=== PATIENT | male | born 1940 | race Caucasian/White ===

== ENCOUNTER 2022-08-19 20:29 | Inpatient (IN) | payer MEDICARE, OTHER ==
[~2022-08-19] VITALS: Ht 177.8 cm; Wt 120.7 kg
--- NOTE | 2022-08-19 20:40 | NUR ---
Dr. Wright at bedside. MSE in progress.
[2022-08-19 21:13] LABS: HEMATOCRIT 49.5 % (36.7-47.1); MEAN CORPUSCULAR HEMOGLOBIN 30.4 uug (23.8-33.4); MEAN CORPUSCULAR VOLUME 93.7 fL (73.0-96.2); PLATELET COUNT (AUTO) 66 K/uL (152-348)
[2022-08-19 21:37] LABS: ALANINE AMINOTRANSFERASE 27 U/L (16-63); ALKALINE PHOSPHATASE 105 U/L (50-136); ASPARTATE AMINOTRANSFERASE 32 U/L (15-37); BILIRUBIN,DIRECT 0.5 mg/dL (0.0-0.2); BILIRUBIN,TOTAL 1.9 mg/dL (0.2-1.0); CARBON DIOXIDE 32 mmol/L (21-32); CHLORIDE 104 mmol/L (98-107); CREATININE 1.1 mg/dL (0.6-1.3); GLUCOSE 127 mg/dL (74-106); POTASSIUM 3.9 mmol/L (3.5-5.1); TOTAL PROTEIN, SERUM 6.6 g/dL (6.4-8.2); UREA NITROGEN, BLOOD 23 mg/dL (7-18)
[2022-08-19 21:46] LABS: LYMPHOCYTES % (MANUAL) 9 % (20-40); MONOCYTES % (MANUAL) 7 % (2-10); NEUTROPHILS % (MANUAL) 84 % (42-75)
[2022-08-19] MEDS ORDERED: FUROSEMIDE 40 MG/4 ML VIAL IV ONE (22:00)
--- NOTE | 2022-08-19 22:00 | NUR ---
Friend at bedside.
[2022-08-19] MEDS ORDERED: FUROSEMIDE 40 MG/4 ML VIAL ONE (22:25)
[2022-08-19] MEDS ORDERED: MAGNESIUM SULFATE/D5W 200 ML ONE (22:26)
[2022-08-19] MEDS: MAGNESIUM SULFATE/D5W 100 ML IV SCH ×2 (22:30→23:19)
[2022-08-19] MEDS ORDERED: TIMO5DRO18 EACHEYE (22:56)
[2022-08-19] MEDS ORDERED: TERA2CAP4 PO (22:56)
[2022-08-19] MEDS ORDERED: METO-357 PO (22:56)
[2022-08-19] MEDS ORDERED: BENA40TA8 PO (22:56)
[2022-08-19] MEDS ORDERED: LOVA20TA2 PO (22:56)
[2022-08-19] MEDS ORDERED: TRIA15CR2 TP (22:56)
[2022-08-19] MEDS ORDERED: TEMA30CA PO (22:56)
[2022-08-19] MEDS ORDERED: LATA2.5D15 EACHEYE (22:56)
[2022-08-19 23:11] LABS: *BILIRUBIN,URIN NEGATIVE (NEGATIVE); *BLOOD, URINE NEGATIVE (NEGATIVE); *CLARITY,URINE CLEAR (CLEAR); *COLOR,URINE YELLOW (YELLOW); *KETONES,URINE 1+ (NEGATIVE); LEUKOCYTE ESTERASE ,URINE NEGATIVE (NEGATIVE); NITRITE, URINE NEGATIVE (NEGATIVE); UGLUCOSE NEGATIVE (NEGATIVE)
[2022-08-19 23:30] LABS: BACTERIA,URINE NONE SEEN /HPF (NONE SEEN); RBC,URINE NONE SEEN /HPF (0-3); SQUAMOUS EPITHELIAL CELL,UR FEW /HPF (NONE SEEN); WBC,URINE NONE SEEN /HPF (0-3)
--- NOTE | 2022-08-20 00:39 | NUR ---
Called respiratory per Dr. Wright's request.
--- NOTE | 2022-08-20 00:42 | NUR ---
Respiratory at bedside.
[2022-08-20] MEDS ORDERED: ENOXAPARIN SODIUM 100 MG/ML DISP.SYRIN SQ ONE ×2 (01:00→01:31)
--- NOTE | 2022-08-20 02:16 | NUR ---
Dr. Wright speaking with Dr. Quintanilla of [facility].
--- NOTE | 2022-08-20 02:20 | NUR ---
Called [facility] for panel call. Dr. Last bi consultant.
--- NOTE | 2022-08-20 02:23 | NUR ---
Dr. Wright on panel call with Dr. Last.
[2022-08-20] MEDS ORDERED: ACETAMINOPHEN 325 MG TABLET PO PRN (02:30)
[2022-08-20] MEDS ORDERED: hydrALAZINE HCL 20 MG/1 ML VIAL IV PRN (02:30)
[2022-08-20] MEDS ORDERED: ONDANSETRON 4 MG/2 ML VIAL IV PRN (02:30)
[2022-08-20] MEDS ORDERED: MORPHINE SULFATE 2 MG/1 ML DISP.SYRIN IVP PRN (02:30)
--- NOTE | 2022-08-20 03:00 | NUR ---
Report given to LUCIO Norton.
--- NOTE | 2022-08-20 03:55 | NUR ---
PT's hallucinations getting worse, Dr. Wright made aware. Patient also pulled out his IV.
[2022-08-20] MEDS ORDERED: LORAZEPAM 2 MG/1 ML VIAL IM PRN (04:00)
[2022-08-20] MEDS ORDERED: LORAZEPAM 2 MG/1 ML VIAL ONE (04:00)
[2022-08-20] MEDS ORDERED: HALOPERIDOL LACTATE 5 MG/1 ML VIAL ONE ×2 (04:00→05:01)
[2022-08-20] MEDS ORDERED: diphenhydrAMINE 50 MG/1 ML VIAL IM PRN (04:00)
[2022-08-20] MEDS ORDERED: diphenhydrAMINE 50 MG/1 ML VIAL ONE (04:00)
[2022-08-20] MEDS ORDERED: HALOPERIDOL LACTATE 5 MG/1 ML VIAL IM ONE (04:00)
[2022-08-20] MEDS ORDERED: ALBUTEROL SULFATE 2.5 MG/3 ML NEBU NEB PRN (04:15)
[2022-08-20] MEDS ORDERED: HALOPERIDOL LACTATE 5 MG/1 ML VIAL IV ONE (05:00)
--- NOTE | 2022-08-20 06:45 | NUR ---
PT sleeping. NAD noted.
[2022-08-20] MEDS ORDERED: METOPROLOL SUCCINATE XL 50 MG TAB.SR.24H PO SCH (09:00)
[2022-08-20] MEDS: FLUTICASONE/VILANTEROL 1 EACH BLST.W.DEV INH SCH (09:00)
--- NOTE | 2022-08-20 09:30 | NUR ---
report received from yessenia lopez rn. pt came from home. presented to er with shortness of breath. pt was diagnose with SOB. pt aox2-3. hallucinating seeing spider crawling on the wallpaper per RN. haloperidol and benadryl was given in er. redness on right lower leg noted. ambulatory w/ fww per pt. bnp 4182; makeda foot +4 pitting edema noted; lasix 40mg was given in er. lac 20g heplock patent and intact. pt uses cpap at night for obstructive sleep apnea. pt on cardiac diet. incontinent on both. pt will go to rm 304 under chriss [employer] DIRECT[employer] will f/u care.
[2022-08-20] MEDS ORDERED: BENAZEPRIL HCL 10 MG TABLET ONE (09:32)
[2022-08-20] MEDS ORDERED: HEPARIN SODIUM,PORCINE 5,000 UNITS/ML VIAL ONE (09:32)
[2022-08-20] MEDS ORDERED: METOPROLOL TARTRATE 50 MG TABLET ONE (09:32)
[2022-08-20] MEDS: BENAZEPRIL HCL 20 MG TABLET PO SCH (09:56)
[2022-08-20] MEDS: HEPARIN SODIUM,PORCINE 5,000 UNITS/ML VIAL SQ SCH ×2 (09:58→22:44)
--- NOTE | 2022-08-20 10:21 | NUR ---
Patient presented to the ER via EMS with complaints of shortness of breath. . Patient is AAOx4. Patient stated that his condition has been worsening over the last seven days. Physician seen, labs and imaging completed, and respiratory treatment and medications given per order. Patient admitted to Telemetry Unit. Patient to be transported by registered nurse via stretcher.
[2022-08-20] MEDS ORDERED: methylPREDNISolone SOD SUCC 125 MG/2 ML VIAL IV ONE (13:15)
[2022-08-20 14:51] VITALS: BP 132/62
[2022-08-20] MEDS: TIMOLOL MALEATE 0.5% OPHT DROP 5 ML BOTTLE EACHEYE SCH ×2 (15:11→18:44)
[2022-08-20] MEDS: CEFEPIME HCL 2 G in IV DEXTROSE 5% 100 ML IV SCH (15:11)
--- NOTE | 2022-08-20 15:17 | NUR ---
md aware pt have dysphagia. npo for now until swallow eval. pt temp 94.7 md notified.
[2022-08-20 15:24] VITALS: BP 133/92
[2022-08-20] MEDS: TERAZOSIN 1 MG CAPSULE PO SCH (18:00)
--- NOTE | 2022-08-20 18:08 | NUR ---
advance directive and medical power of associate attorney placed in chart.
[2022-08-20] MEDS: CLOTRIMAZOLE 1% CREAM 30 GM TUBE TOP SCH (18:45)
[2022-08-20 20:00] VITALS: BP 152/92
[2022-08-20] MEDS ORDERED: TEMAZEPAM 15 MG CAPSULE PO PRN (21:00)
[2022-08-20] MEDS: ATORVASTATIN 10 MG TABLET PO SCH (22:42)
[2022-08-20] MEDS: LATANOPROST OPHT DROP 2.5 ML BOTTLE EACHEYE SCH (22:43)
[2022-08-20] MEDS: FUROSEMIDE 20 MG/2 ML VIAL IV SCH (22:43)
[2022-08-20] MEDS: REMEDY ESSENTIAL ZINC PASTE 113 GM TOP SCH (22:44)
[2022-08-21] MEDS: CEFEPIME HCL 2 G in IV DEXTROSE 5% 100 ML IV SCH ×3 (02:25→17:12)
[2022-08-21 04:00] VITALS: BP 144/70
[2022-08-21 07:22] LABS: MEAN CORPUSCULAR HEMOGLOBIN 30.8 uug (23.8-33.4); PLATELET COUNT (AUTO) 77 K/uL (152-348)
[2022-08-21 07:42] LABS: BILIRUBIN,TOTAL 1.3 mg/dL (0.2-1.0); MAGNESIUM 2.1 mg/dL (1.8-2.4); POTASSIUM 3.6 mmol/L (3.5-5.1); TOTAL PROTEIN, SERUM 6.5 g/dL (6.4-8.2)
[2022-08-21] MEDS: methylPREDNISolone SOD SUCC 40 MG/ML VIAL IV SCH ×2 (08:25→20:46)
[2022-08-21] MEDS: BENAZEPRIL HCL 20 MG TABLET PO SCH (08:25)
[2022-08-21] MEDS: HEPARIN SODIUM,PORCINE 5,000 UNITS/ML VIAL SQ SCH ×2 (08:26→20:46)
[2022-08-21 08:30] VITALS: BP 160/84
[2022-08-21] MEDS: TIMOLOL MALEATE 0.5% OPHT DROP 5 ML BOTTLE EACHEYE SCH ×2 (08:36→17:12)
[2022-08-21] MEDS: FLUTICASONE/VILANTEROL 1 EACH BLST.W.DEV INH SCH (08:37)
[2022-08-21] MEDS: FUROSEMIDE 20 MG/2 ML VIAL IV SCH ×2 (09:00→20:46)
[2022-08-21 11:49] VITALS: BP 124/64
[2022-08-21] MEDS: CLOTRIMAZOLE 1% CREAM 30 GM TUBE TOP SCH ×2 (11:50→17:15)
[2022-08-21] MEDS: REMEDY ESSENTIAL ZINC PASTE 113 GM TOP SCH ×2 (11:51→20:47)
[2022-08-21 16:58] VITALS: BP 137/73
[2022-08-21] MEDS: TERAZOSIN 1 MG CAPSULE PO SCH (17:13)
--- NOTE | 2022-08-21 18:40 | NUR ---
Pt status improving fully awake oriented x 4 Short walk with Pt. oob to commode. bmx1 Tolerating diet. RLE remains red Cream applied.
--- NOTE | 2022-08-21 19:30 | NUR ---
Received patient lying in bed. AAOx4. In no acute distress. Denies any pain or SOB. On O2 at 2LPM via NC in place. O2 sat at 93%. A. fib on tele with HR of 80/min. IV site on left AC intact and patent. Noted with off and on coughing, non-productive. Needs assessed and attended to. Safety measure initiated and call light within reached.
--- NOTE | 2022-08-21 20:00 | NUR ---
Received patient lying in bed. AAOx4. In no apparent distress. No complain of any pain or SOB at this time. No coughing noted. On O2 at 2LPM via NC in place. IV site on left AC intact and patent. Needs assessed and attended to. Safety measure initiated and call light within reached.
[2022-08-21 20:26] VITALS: BP 115/60
[2022-08-21] MEDS: ATORVASTATIN 10 MG TABLET PO SCH (20:46)
[2022-08-21] MEDS: LATANOPROST OPHT DROP 2.5 ML BOTTLE EACHEYE SCH (20:46)
[2022-08-22 00:45] VITALS: BP 159/95
[2022-08-22] MEDS: CEFEPIME HCL 2 G in IV DEXTROSE 5% 100 ML IV SCH ×3 (01:16→17:07)
[2022-08-22 04:05] VITALS: BP 149/74
--- NOTE | 2022-08-22 05:41 | NUR ---
Patient slept well during the night. In no apparent distress. No complain of pain or SOB. Controlled A. fib on tele with HR of 76/min. No adverse reaction noted from IV antibiotic. Needs attended to and met. Safety measure maintained and call light within reached.
[2022-08-22 06:42] LABS: HEMATOCRIT 49.1 % (36.7-47.1); MEAN CORPUSCULAR HEMOGLOBIN 30.9 uug (23.8-33.4); PLATELET COUNT (AUTO) 91 K/uL (152-348)
[2022-08-22 07:01] LABS: CREATININE 1.2 mg/dL (0.6-1.3); MAGNESIUM 2.2 mg/dL (1.8-2.4); PHOSPHOROUS 4.3 mg/dL (2.5-4.9); POTASSIUM 3.8 mmol/L (3.5-5.1)
--- NOTE | 2022-08-22 08:00 | NUR ---
Pt alert and oriented x 4. Aspiration precaution implemented. Bed alarm turned on. Right leg redness cellulitis noted. DANA leg +4 edema noted and elevated heels floated. Applied lotrimin and z guard to rashes on back and legs. IV site flushing well on L ac. @tko.
[2022-08-22] MEDS: methylPREDNISolone SOD SUCC 40 MG/ML VIAL IV SCH ×2 (08:42→20:07)
[2022-08-22] MEDS: FUROSEMIDE 20 MG TABLET PO SCH (08:42)
[2022-08-22] MEDS: HEPARIN SODIUM,PORCINE 5,000 UNITS/ML VIAL SQ SCH ×2 (08:43→20:09)
[2022-08-22] MEDS: REMEDY ESSENTIAL ZINC PASTE 113 GM TOP SCH ×2 (08:44→20:08)
[2022-08-22] MEDS: CLOTRIMAZOLE 1% CREAM 30 GM TUBE TOP SCH ×2 (08:44→16:34)
[2022-08-22] MEDS: FLUTICASONE/VILANTEROL 1 EACH BLST.W.DEV INH SCH (08:46)
[2022-08-22] MEDS: BENAZEPRIL HCL 20 MG TABLET PO SCH (08:46)
[2022-08-22] MEDS: TIMOLOL MALEATE 0.5% OPHT DROP 5 ML BOTTLE EACHEYE SCH ×2 (08:47→16:34)
[2022-08-22 11:59] VITALS: BP 156/90
--- NOTE | 2022-08-22 13:19 | NUR ---
WOUND CARECONSULT: PT PRESENTS WITH RASH TO BUTTOCKS AND VERY RED, SWOLLEN RT LOWER LEG, PRESENT ON ADMISSION. ANTIFUNGAL CREAM PREVIOUSLY ORDERED. DR STILL CALLED FOR DPM CONSULT. LEGS ELEVATED. DISCUSSED SKIN PROTECTION WITH NURSING STAFF. MD IN AGREEMENT WITH PLAN OF CARE.
[2022-08-22] MEDS ORDERED: TIOT18CA3 INH (14:50)
[2022-08-22 16:20] VITALS: BP 163/95
[2022-08-22] MEDS: TERAZOSIN 1 MG CAPSULE PO SCH (17:06)
--- NOTE | 2022-08-22 17:41 | NUR ---
Pt is in no acute distress. Call light is within reach. No fall noted. Pt denies any c/o pain.
[2022-08-22] MEDS: LATANOPROST OPHT DROP 2.5 ML BOTTLE EACHEYE SCH (20:07)
[2022-08-22] MEDS: ATORVASTATIN 10 MG TABLET PO SCH (20:07)
[2022-08-22 20:32] VITALS: BP 136/74
[2022-08-23] MEDS: CEFEPIME HCL 2 G in IV DEXTROSE 5% 100 ML IV SCH ×3 (01:21→17:06)
[2022-08-23 04:10] VITALS: BP 160/75
--- NOTE | 2022-08-23 05:53 | NUR ---
No complain of pain or SOB. No adverse reaction noted from IV antibiotic. Needs attended to and met. Safety measure maintained and call light within reached.
[2022-08-23 06:50] LABS: MEAN CORPUSCULAR VOLUME 93.9 fL (73.0-96.2); PLATELET COUNT (AUTO) 72 K/uL (152-348)
[2022-08-23 07:28] LABS: MAGNESIUM 2.2 mg/dL (1.8-2.4); PHOSPHOROUS 3.3 mg/dL (2.5-4.9); POTASSIUM 3.5 mmol/L (3.5-5.1)
[2022-08-23 09:20] VITALS: BP 156/75
[2022-08-23] MEDS: FLUTICASONE/VILANTEROL 1 EACH BLST.W.DEV INH SCH (09:20)
[2022-08-23] MEDS: methylPREDNISolone SOD SUCC 40 MG/ML VIAL IV SCH (09:20)
[2022-08-23] MEDS: TIMOLOL MALEATE 0.5% OPHT DROP 5 ML BOTTLE EACHEYE SCH ×2 (09:20→17:06)
[2022-08-23] MEDS: FUROSEMIDE 20 MG TABLET PO SCH (09:21)
[2022-08-23] MEDS: BENAZEPRIL HCL 20 MG TABLET PO SCH (09:21)
[2022-08-23] MEDS: REMEDY ESSENTIAL ZINC PASTE 113 GM TOP SCH ×2 (09:22→20:37)
[2022-08-23] MEDS: CLOTRIMAZOLE 1% CREAM 30 GM TUBE TOP SCH ×2 (09:23→17:12)
[2022-08-23] MEDS: SPIRIVA INH SCH (10:22)
[2022-08-23] MEDS: HANDIHALER INH SCH (10:22)
[2022-08-23] MEDS: HEPARIN SODIUM,PORCINE 5,000 UNITS/ML VIAL SQ SCH ×2 (10:25→20:34)
[2022-08-23 11:32] VITALS: BP 163/76
[2022-08-23] MEDS: GUAIFENESIN LA 600 MG TABLET.SA PO PRN (12:52)
[2022-08-23] MEDS ORDERED: GUAI600T53 PO (15:25)
[2022-08-23] MEDS ORDERED: HEPA50007 SQ (15:25)
[2022-08-23] MEDS ORDERED: CLOT30CR24 TOP (15:25)
[2022-08-23] MEDS ORDERED: DOXY100T2 PO (15:25)
[2022-08-23] MEDS ORDERED: FURO20TA4 PO (15:25)
[2022-08-23] MEDS ORDERED: MENT113O TOP (15:25)
[2022-08-23] MEDS ORDERED: ALBU2.5V7 NEB (15:25)
[2022-08-23] MEDS ORDERED: FLUT1BLS INH (15:25)
[2022-08-23] MEDS ORDERED: methylPREDNISolone SOD SUCC IV (15:26)
[2022-08-23 16:54] VITALS: BP 158/90
[2022-08-23] MEDS: TERAZOSIN 1 MG CAPSULE PO SCH (18:21)
--- NOTE | 2022-08-23 19:42 | NUR ---
RECEIVED REPORT FROM LUCIO MCCABE. PATIENT IS ALERT & ORIENTED X4 AND SPEAKS NIUEAN. VITAL SIGNS STABLE. PATIENT TOLERATES PO & IV MEDICATIONS WELL. PATIENT VOIDS ADEQUATELY. NO BOWEL MOVEMENT DURING SHIFT. PATIENT HAD DISLODGED IV FOLLOWING ANTIBIOTICS THERAPY. RN REMOVED IV. CATHETER TIP INTACT. RN INSERTED 22G IV ON THE RIGHT HAND AT 17:00PM. BLOOD RETURN SUCCESSFUL. PATIENT DENIES PAIN UPON FLUSHING WITH NORMAL SALINE. PATIENT DENIES PAIN. NO ACUTE DISTRESS NOTED. FALL PRECAUTIONS OBSERVED; INCLUDING BUT NOT LIMITED TO BED IN LOWEST POSITION AND BED ALARM ON. ALL NEEDS MET AT THIS TIME. ENDORSED CARE TO LUCIO MERA, FOR CONTINUATION OF CARE.
[2022-08-23 20:00] VITALS: BP 139/75
[2022-08-23] MEDS: ATORVASTATIN 10 MG TABLET PO SCH (20:33)
[2022-08-23] MEDS: LATANOPROST OPHT DROP 2.5 ML BOTTLE EACHEYE SCH (20:36)
[2022-08-24] MEDS: CEFEPIME HCL 2 G in IV DEXTROSE 5% 100 ML IV SCH ×3 (01:32→17:19)
[2022-08-24 04:00] VITALS: BP 157/71
[2022-08-24] MEDS: TIMOLOL MALEATE 0.5% OPHT DROP 5 ML BOTTLE EACHEYE SCH ×2 (08:15→16:44)
[2022-08-24] MEDS: FUROSEMIDE 20 MG TABLET PO SCH (08:15)
[2022-08-24] MEDS: methylPREDNISolone SOD SUCC 40 MG/ML VIAL IV SCH ×2 (08:16→09:00)
[2022-08-24] MEDS: BENAZEPRIL HCL 20 MG TABLET PO SCH (08:20)
[2022-08-24] MEDS: HEPARIN SODIUM,PORCINE 5,000 UNITS/ML VIAL SQ SCH ×2 (08:21→20:45)
[2022-08-24] MEDS: CLOTRIMAZOLE 1% CREAM 30 GM TUBE TOP SCH ×2 (08:21→16:44)
[2022-08-24] MEDS: FLUTICASONE/VILANTEROL 1 EACH BLST.W.DEV INH SCH (08:22)
[2022-08-24] MEDS: REMEDY ESSENTIAL ZINC PASTE 113 GM TOP SCH ×2 (08:22→20:46)
[2022-08-24] MEDS: SPIRIVA INH SCH ×2 (08:35→08:37)
[2022-08-24] MEDS: HANDIHALER INH SCH ×2 (08:35→08:37)
--- NOTE | 2022-08-24 09:58 | NUR ---
PT REFUSED GETTING A NEW IV LINE. HIS PREVIOUS IV LINE WAS PULLED OUT EARLY IN THE AM REPORTED TO ME BY PM SHIFT.
--- NOTE | 2022-08-24 10:11 | NUR ---
PATIENT REFUSED MY SECOND OFFER TO GET A NEW IV LINE AGAIN AND ALSO HE REFUSED TO GET MAXEPIME AT 10:00
[2022-08-24] MEDS: GUAIFENESIN LA 600 MG TABLET.SA PO PRN (10:21)
[2022-08-24 11:10] VITALS: BP 142/95
--- NOTE | 2022-08-24 13:30 | NUR ---
Pt got midline inserted. Tolerated well. His friend Chi is at bedside with him.
[2022-08-24 15:16] VITALS: BP 161/81
--- NOTE | 2022-08-24 15:44 | NUR ---
Pt's BP increased 163/98, p 82. Got hydralazine IV. Will monitor.
[2022-08-24] MEDS: TERAZOSIN 1 MG CAPSULE PO SCH (17:23)
[2022-08-24 20:00] VITALS: BP 148/86
[2022-08-24] MEDS: LATANOPROST OPHT DROP 2.5 ML BOTTLE EACHEYE SCH (20:43)
[2022-08-24] MEDS: ATORVASTATIN 10 MG TABLET PO SCH (20:44)
--- NOTE | 2022-08-24 23:00 | NUR ---
1925- The patient is aox4. The patient has a patent midline on neelima that is clean, dry, and intact. The patient is not complaining of pain. The patient is at 2 liters nasal cannula. Bed at lowest position, wheels lock, two side rails up, bed alarm on. Call light within reach. Will continue to monitor throughout the shift. 2100- The patient request for extra water and ice. Item is givne to the patient. The patient has no complains of pain. Will continue to monitor throughout the shift. Held the medication heparin due to plt being not in parameter. 0100- The patient is asleep and has no complains of pain. Will continue to monitor throughout the shift.
[2022-08-25] MEDS: CEFEPIME HCL 2 G in IV DEXTROSE 5% 100 ML IV SCH ×3 (02:21→17:13)
[2022-08-25 04:00] VITALS: BP 139/78
[2022-08-25] MEDS: FUROSEMIDE 20 MG TABLET PO SCH (08:42)
[2022-08-25] MEDS: BENAZEPRIL HCL 20 MG TABLET PO SCH (08:42)
[2022-08-25] MEDS: HEPARIN SODIUM,PORCINE 5,000 UNITS/ML VIAL SQ SCH ×2 (08:43→21:13)
[2022-08-25] MEDS: methylPREDNISolone SOD SUCC 40 MG/ML VIAL IV SCH (08:44)
[2022-08-25] MEDS: NICOTINE 7 MG/24HR PATCH TD SCH (08:46)
[2022-08-25] MEDS: hydrALAZINE HCL 50 MG TABLET PO SCH ×2 (08:48→21:13)
[2022-08-25] MEDS: FLUTICASONE/VILANTEROL 1 EACH BLST.W.DEV INH SCH (08:49)
[2022-08-25] MEDS: TIMOLOL MALEATE 0.5% OPHT DROP 5 ML BOTTLE EACHEYE SCH ×2 (08:50→17:06)
[2022-08-25] MEDS: REMEDY ESSENTIAL ZINC PASTE 113 GM TOP SCH ×2 (08:51→21:18)
[2022-08-25] MEDS: CLOTRIMAZOLE 1% CREAM 30 GM TUBE TOP SCH ×2 (08:51→17:07)
[2022-08-25] MEDS: HANDIHALER INH SCH (09:00)
[2022-08-25] MEDS: SPIRIVA INH SCH (09:00)
[2022-08-25 11:22] VITALS: BP 142/81
[2022-08-25 15:01] VITALS: BP 101/57
[2022-08-25] MEDS: TERAZOSIN 1 MG CAPSULE PO SCH (17:13)
[2022-08-25] MEDS: GUAIFENESIN LA 600 MG TABLET.SA PO PRN (17:23)
--- NOTE | 2022-08-25 17:33 | NUR ---
Pt. has been stable through out the shift. Trinidadian speaking. No c/o pain, able to make the need known. Skin treatment done. Pt. has been compliance with the care given. Urine collected and sent to lab. Needs stool sample but no episode of bowel movement noted and will endorse next shift for the sample need. will keep monitoring the patient. Addendum: 08/25/22 at 1741 by CALVIN MONROY RN Error
--- NOTE | 2022-08-25 17:45 | NUR ---
Pt. has been stable through out the shift. Compliance with the care given. Able to ambulate with walker and assist. No c/o pain. All needs attended and met. No acute distress noted. Call light within reach. Will keep monitoring the patient.
[2022-08-25 20:00] VITALS: BP 137/71
[2022-08-25] MEDS: ATORVASTATIN 10 MG TABLET PO SCH (21:12)
[2022-08-25] MEDS: LATANOPROST OPHT DROP 2.5 ML BOTTLE EACHEYE SCH (21:12)
[2022-08-26] MEDS: CEFEPIME HCL 2 G in IV DEXTROSE 5% 100 ML IV SCH ×2 (01:43→09:19)
--- NOTE | 2022-08-26 03:45 | NUR ---
Awake alert and oriented x3-4 On 2L via nasal cannula, pulse ox 95%. All needs attended. VSS Right upper midline flush and patent. On ABT given as scheduled. Tolerated well. Bipap at hs. Kept comfortable. Voiding well. OOB to the BR with supervision. Continent of bowel and bladder.
[2022-08-26 04:00] VITALS: BP 144/78
[2022-08-26] MEDS: methylPREDNISolone SOD SUCC 40 MG/ML VIAL IV SCH (08:27)
[2022-08-26] MEDS: HEPARIN SODIUM,PORCINE 5,000 UNITS/ML VIAL SQ SCH (08:27)
[2022-08-26] MEDS: FUROSEMIDE 20 MG TABLET PO SCH (08:28)
[2022-08-26] MEDS: NICOTINE 7 MG/24HR PATCH TD SCH (08:28)
[2022-08-26] MEDS: CLOTRIMAZOLE 1% CREAM 30 GM TUBE TOP SCH (08:28)
[2022-08-26] MEDS: hydrALAZINE HCL 50 MG TABLET PO SCH (08:28)
[2022-08-26] MEDS: TIMOLOL MALEATE 0.5% OPHT DROP 5 ML BOTTLE EACHEYE SCH (08:29)
[2022-08-26] MEDS: FLUTICASONE/VILANTEROL 1 EACH BLST.W.DEV INH SCH (08:29)
[2022-08-26] MEDS: REMEDY ESSENTIAL ZINC PASTE 113 GM TOP SCH (08:30)
[2022-08-26] MEDS: BENAZEPRIL HCL 20 MG TABLET PO SCH (08:31)
[2022-08-26] MEDS: HANDIHALER INH SCH (09:00)
[2022-08-26] MEDS: SPIRIVA INH SCH (09:00)
[2022-08-26] MEDS: GUAIFENESIN LA 600 MG TABLET.SA PO PRN (11:42)
[2022-08-26 12:00] VITALS: BP 146/91
--- NOTE | 2022-08-26 15:00 | NUR ---
Pt. discharged to [facility] He was transferred via ambulance and I called and gave report to Elsi. Pt. noted to be stable upon the discharge. No acute distress noted. Necessary document signed and personal belonging returned to the patient. Skin check done and pictures included in pt. chert. Inman (WEARING APPAREL ASSEMBLER) ordered to keep the pt. midline, do not remove it and order was followed.
[2022-08-26 16:00] VITALS: BP 106/58
== END 2022-08-26 15:00 | DRG 193 ==
LOC: ER 20:29 → TELE3 08-20 02:20 → MEDSURG3 08-22 09:49
PROVIDERS: ADMIT Nurse Practitioner Acute Care; ATTEND Registered Nurse
PROC: 5A09357 Assistance with Respiratory Ventilation, Less than 24 Consecutive Hours, Continuous Positive Airway Pressure (ICD-10-PCS; principal; 2022-08-20)
PROC: 05H533Z Insertion of Infusion Device into Right Subclavian Vein, Percutaneous Approach (ICD-10-PCS; 2022-08-24)
PROC: B546ZZA Ultrasonography of Right Subclavian Vein, Guidance (ICD-10-PCS; 2022-08-24)
DX: J15.9 Unspecified bacterial pneumonia (principal); I50.33 Acute on chronic diastolic (congestive) heart failure; J96.00 Acute respiratory failure, unspecified whether with hypoxia or hypercapnia; J44.1 Chronic obstructive pulmonary disease with (acute) exacerbation; J44.0 Chronic obstructive pulmonary disease with (acute) lower respiratory infection; I48.20 Chronic atrial fibrillation, unspecified; L03.115 Cellulitis of right lower limb; L03.116 Cellulitis of left lower limb; G93.40 Encephalopathy, unspecified; I11.0 Hypertensive heart disease with heart failure; E66.01 Morbid (severe) obesity due to excess calories; G47.33 Obstructive sleep apnea (adult) (pediatric); F17.210 Nicotine dependence, cigarettes, uncomplicated; Z68.38 Body mass index [BMI] 38.0-38.9, adult; Z20.822 Contact with and (suspected) exposure to COVID-19; I87.2 Venous insufficiency (chronic) (peripheral)
CPT/HCPCS: 36415; 70030-TC; 70450; 71045; 83735; 84100; 84443; 84481; 84484; 85025; 85730; 93005; 93307; 94660; A9150; G0378; J0360; J0692; J1200; J1630; J1644; J1650; J1940; J2060; J2920; J2930; J3475; J7040

== ENCOUNTER 2022-09-18 11:01 | Inpatient (IN) | payer OTHER ==
[~2022-09-18] VITALS: Ht 167.6 cm; Wt 122.6 kg
[~2022-09-18 11:01] MED LIST: ALBU2.5V7 NEB; BENA40TA8 PO; CLOT30CR24 TOP; DOXY100T2 PO; FLUT1BLS INH; FURO20TA4 PO; GUAI600T53 PO; HEPA50007 SQ; LATA2.5D15 EACHEYE; LOVA20TA2 PO; MENT113O TOP; METO-357 PO; TEMA30CA PO; TERA2CAP4 PO; TIMO5DRO18 EACHEYE; TIOT18CA3 INH; TRIA15CR2 TP; methylPREDNISolone SOD SUCC IV
[2022-09-18] MEDS ORDERED: CEFEPIME HCL 2 G in IV DEXTROSE 5% 100 ML IV ONE (11:15)
--- NOTE | 2022-09-18 11:32 | NUR ---
Pt out of Er for Ct scan.
[2022-09-18] MEDS ORDERED: HYDR-894 PO (11:37)
[2022-09-18] MEDS ORDERED: LOVA20TA2 PO (11:37)
[2022-09-18 11:38] LABS: MEAN CORPUSCULAR VOLUME 93.2 fL (73.0-96.2); PLATELET COUNT (AUTO) 75 K/uL (152-348)
[2022-09-18] MEDS ORDERED: IV NS 1000 ML 1,000 ML IV ONE (11:45)
[2022-09-18 11:48] LABS: CREATININE 1.3 mg/dL (0.6-1.3); POTASSIUM 5.4 mmol/L (3.5-5.1)
[2022-09-18 11:53] LABS: BILIRUBIN,TOTAL 0.6 mg/dL (0.2-1.0); PHOSPHOROUS 4.5 mg/dL (2.5-4.9); TOTAL PROTEIN, SERUM 6.1 g/dL (6.4-8.2)
[2022-09-18 11:56] LABS: ABG BASE EXCESS 3.3 mmol/L; ABG HCO3 29.4 mmol/L; ABG PCO2 50.2 mmHg (35.0-45.0); ABG PH 7.386 (7.350-7.450); ABG PO2 78.5 mmHg (75.0-100.0); ABG SITE RIGHT RADIAL; ABG TOTAL HEMOGLOBIN 15.6 G/dL (13.5-18.0); COHb 2.7 % (0.5-1.5); MetHb 0.1 % (0.0-1.5); O2Hb 93.4 % (94.0-97.0); VENT MODE Nasal Cannula
--- NOTE | 2022-09-18 12:01 | NUR ---
Pt back from Ct, Pt's POA speaking to Dr Landon.
[2022-09-18 12:14] LABS: *BILIRUBIN,URIN NEGATIVE (NEGATIVE); *CLARITY,URINE CLEAR (CLEAR); *COLOR,URINE YELLOW (YELLOW); *KETONES,URINE NEGATIVE (NEGATIVE); *UROBILINOGEN,URINE 0.2 E.U./dl (NORMAL); LEUKOCYTE ESTERASE ,URINE NEGATIVE (NEGATIVE); NITRITE, URINE NEGATIVE (NEGATIVE); UGLUCOSE NEGATIVE (NEGATIVE)
[2022-09-18 13:01] LABS: *BLOOD, URINE TRACE (NEGATIVE)
[2022-09-18 14:19] LABS: WBC,URINE NONE SEEN /HPF (0-3)
[2022-09-18 14:20] LABS: BACTERIA,URINE FEW /HPF (NONE SEEN); SQUAMOUS EPITHELIAL CELL,UR FEW /HPF (NONE SEEN)
[2022-09-18 15:42] LABS: LYMPHOCYTES % (MANUAL) 17 % (20-40); MONOCYTES % (MANUAL) 7 % (2-10); NEUTROPHILS % (MANUAL) 76 % (42-75)
[2022-09-18] MEDS ORDERED: SODIUM POLYSTYRENE SULFONATE ENEMA 30 G/120 ML BOTTLE RC ONE ×2 (16:30→16:31)
[2022-09-18] MEDS ORDERED: IPRATROPIUM BROMIDE 0.5 MG/2.5 ML NEBU ONE (16:58)
[2022-09-18] MEDS ORDERED: ALBUTEROL SULFATE 2.5 MG/3 ML NEBU ONE (16:58)
[2022-09-18] MEDS ORDERED: IPRATROPIUM BROMIDE 0.5 MG/2.5 ML NEBU NEB ONE (17:00)
[2022-09-18] MEDS ORDERED: ALBUTEROL SULFATE 2.5 MG/3 ML NEBU NEB ONE (17:00)
--- NOTE | 2022-09-18 18:19 | NUR ---
Pt transfered to bed 302, tele, to Dr Dhillon admitting.
[2022-09-18 18:30] VITALS: BP 129/73
--- NOTE | 2022-09-18 18:39 | NUR ---
ADMITTED FROM HOME PER REPORT VIA ER AN 82 YO MALE WITH ADMITTING DX OF AMS, ALERT BUT CONFUSED X3, NO SS OF DISTRESS ON 3L NC SATURATING 96%. PLACED ON FURNACE SETTER SR AT 68/MIN. MULTIPLE SKIN REDNESS BUE, BLE, REDNESS GROIN, SKIN TEAR LEFT FOREARM 2X2. DR STODDARD NOTIFIED OF ADMISSION.
[2022-09-18] MEDS ORDERED: IV D5 1/2 NS 1000 ML 1,000 ML IV PRN (19:15)
[2022-09-18] MEDS ORDERED: ACETAMINOPHEN 650 MG SUPP.RECT RC PRN (19:15)
[2022-09-18] MEDS ORDERED: ONDANSETRON 4 MG/2 ML VIAL IV PRN (19:15)
[2022-09-18] MEDS ORDERED: CEFEPIME HCL 1 G VIAL ONE (20:09)
[2022-09-19] MEDS ORDERED: CEFEPIME HCL 1 G in IV DEXTROSE 5% 50 ML IV SCH ×2
[2022-09-19 00:03] VITALS: BP 149/84
[2022-09-19 04:12] VITALS: BP 140/72
[2022-09-19] MEDS: MORPHINE SULFATE 2 MG/1 ML DISP.SYRIN IV PRN ×4 (05:42→21:29)
--- NOTE | 2022-09-19 05:49 | NUR ---
END OF SHIFT REPORT Admitted to room 302; admission procedure done; IVF started; new IV to right forearm; antibiotics started; pt observed to be screaming this AM, morphine given IVP; will continue to monitor; WCRN ordered and bariatric bed ordered as well.
[2022-09-19 06:05] LABS: ABG BASE EXCESS 3.5 mmol/L; ABG HCO3 27.9 mmol/L; ABG PCO2 41.4 mmHg (35.0-45.0); ABG PH 7.446 (7.350-7.450); ABG PO2 58.8 mmHg (75.0-100.0); ABG SITE LEFT RADIAL; ABG TOTAL HEMOGLOBIN 15.3 G/dL (13.5-18.0); COHb 1.3 % (0.5-1.5); MetHb 0.1 % (0.0-1.5); O2Hb 91.9 % (94.0-97.0); VENT MODE Nasal Cannula
[2022-09-19 07:19] LABS: HEMATOCRIT 42.7 % (36.7-47.1); MEAN CORPUSCULAR HEMOGLOBIN 30.9 uug (23.8-33.4); MEAN CORPUSCULAR VOLUME 93.4 fL (73.0-96.2); PLATELET COUNT (AUTO) 68 K/uL (152-348)
[2022-09-19 07:57] LABS: ALANINE AMINOTRANSFERASE 32 U/L (16-63); ALKALINE PHOSPHATASE 117 U/L (50-136); ASPARTATE AMINOTRANSFERASE 20 U/L (15-37); BILIRUBIN,TOTAL 0.8 mg/dL (0.2-1.0); CARBON DIOXIDE 35 mmol/L (21-32); CHLORIDE 106 mmol/L (98-107); CHOLESTEROL 126 mg/dL (<200); CREATININE 1.1 mg/dL (0.6-1.3); GLUCOSE 124 mg/dL (74-106); HDL CHOLESTEROL 40 mg/dL (40-60); PHOSPHOROUS 2.9 mg/dL (2.5-4.9); POTASSIUM 4.5 mmol/L (3.5-5.1); TOTAL PROTEIN, SERUM 5.9 g/dL (6.4-8.2); TRIGLYCERIDES 79 MG/DL (30-150); UREA NITROGEN, BLOOD 20 mg/dL (7-18)
--- NOTE | 2022-09-19 08:00 | NUR ---
Pt confused. Alert x 1 Reorient patient to time and place but pt too confused and has poor memory. PT unable to follow directions. Noted +3 edema RODOLFO LE's. Noted Redness on groin area applied z guard but still awaiting for wound care nurse for skin eval. Bruising Noted on Rodolfo arms. PT is on 4 lit n/c with sat of 97%. Pt on fall and aspiration precaution and frequent turn q 2 hours implemented. HOB on high fowlers. Pt comfortable in bed. Call light is within reach.
[2022-09-19 08:07] LABS: THYROID STIMULATING HORMONE 4.769 mIU/mL (0.358-3.740)
[2022-09-19] MEDS: PANTOPRAZOLE SODIUM 40 MG VIAL IV SCH (08:38)
[2022-09-19] MEDS: FLUTICASONE/VILANTEROL 1 EACH BLST.W.DEV INH SCH (08:39)
[2022-09-19] MEDS: TIMOLOL MALEATE 0.5% OPHT DROP 5 ML BOTTLE EACHEYE SCH ×2 (08:39→16:34)
[2022-09-19] MEDS ORDERED: ALBUTEROL SULFATE 2.5 MG/ 0.5 ML NEBU NEB PRN (09:00)
[2022-09-19] MEDS: ALBUTEROL SULFATE 2.5 MG/3 ML NEBU NEB PRN ×2 (10:15→21:46)
[2022-09-19] MEDS: IPRATROPIUM BROMIDE 0.5 MG/2.5 ML NEBU NEB PRN ×2 (10:15→21:46)
[2022-09-19] MEDS: CEFEPIME HCL 1 G in IV DEXTROSE 5% 50 ML IV SCH ×2 (10:20→16:54)
[2022-09-19 11:35] VITALS: BP 100/73
--- NOTE | 2022-09-19 12:35 | NUR ---
WOUND CARE CONSULT: AGITATED AT TIMES. PT NOT TURNED FOR FULL SKIN ASSESSMENT AT THIS TIME. PT NOTED TO HAVE REDNESS WITH EDEMA TO LOWER LEGS, PRESENT ON ADMISSION. ADMISSION PHOTOS INDICATE LEFT ARM SKIN TEAR AND RASH TO BUTTOCKS AND PERINEUM. RECOMMENDATIONS MADE FOR SKIN PROTECTION. DISCUSSED WITH NURSING STAFF. IN AGREEMENT WITH PLAN OF CARE. Addendum: 09/19/22 at 1258 by TIARA HERNANDEZ RN DR STILL CALLED FOR DPM CONSULT. IN AGREEMENT WITH PLAN OF CARE.
[2022-09-19] MEDS ORDERED: REMEDY ESSENTIAL ZINC PASTE 113 GM TOP PRN (13:00)
--- NOTE | 2022-09-19 16:30 | NUR ---
Applied soft wrist restraint makeda secondary to pt secondary to pt pulling out his o2 and pt desaturating to 84%. Reapplied o2 @ 3 lit with sat of 94%. Pt tolerated doppler test.
[2022-09-19] MEDS: CLOTRIMAZOLE 1% CREAM 30 GM TUBE TOP SCH (16:35)
[2022-09-19 16:38] VITALS: BP 111/72
--- NOTE | 2022-09-19 18:13 | NUR ---
Consent for MRI Marcos w and w/o contrast given by NINA Mireles. (dpoa copy at chart) PT continously attempting to pull out tubings. PT kept NPO. PT was seen by dr Sarmiento/Alma GIRALDO pt for MRI stat but per Lee MRI SOH unable to be done today neurologist aware. Bariatric Bed set up by Mark for tomorrow MRI. MRI checklist done.
--- NOTE | 2022-09-19 18:31 | NUR ---
Able to titrate o2 2 lit via n/c with sat of 91%.
--- NOTE | 2022-09-19 20:00 | NUR ---
Received patient lying in bed. AAO to self only. Mainly confused and disoriented. In no acute distress. No signs or symptoms of pain or SOB. Mouth breathing. On O2 at 2LPM via NC in place. NSR on tele with HR of 89/min. Bilateral wrist restraint and hand mittens in place. Circulation checked. Needs anticipated to and met. Safety measure initiated. Continue to monitor.
[2022-09-19] MEDS: LATANOPROST OPHT DROP 2.5 ML BOTTLE EACHEYE SCH (20:12)
[2022-09-19] MEDS: REMEDY ESSENTIAL ZINC PASTE 113 GM TOP SCH (20:12)
[2022-09-19 20:38] VITALS: BP 149/70
[2022-09-19] MEDS ORDERED: LORAZEPAM 2 MG/1 ML VIAL IV ONE (22:15)
--- NOTE | 2022-09-19 22:16 | NUR ---
Patient screaming and yelling off and on. Confused and disoriented. Given Morphine 2MG IV at 2128 for signs of pain but appears to be ineffective. Continue to scream and yell off and on. Unable to say what he wants. Breathing tx also provided by RT. Informed Dr Cooper and obtain order for Ativan 2mg IV x1. Order verified and will carry out.
[2022-09-20 00:03] VITALS: BP 128/89
[2022-09-20 04:28] VITALS: BP 114/65
--- NOTE | 2022-09-20 05:16 | NUR ---
In no acute distress. SR with 1st degree AVB on tele with HR of 85/min. Had 4 beats pf V tach but converted back to SR. No signs or symptoms of pain or SOB. Turn and reposition for comfort. Safety measure maintained.
[2022-09-20 06:56] LABS: POTASSIUM 4.3 mmol/L (3.5-5.1)
[2022-09-20 07:06] LABS: HEMATOCRIT 42.6 % (36.7-47.1); MEAN CORPUSCULAR HEMOGLOBIN 31.5 uug (23.8-33.4); MEAN CORPUSCULAR VOLUME 94.5 fL (73.0-96.2); PLATELET COUNT (AUTO) 59 K/uL (152-348)
--- NOTE | 2022-09-20 08:00 | NUR ---
Received pt. lying in bed awake and alert, mainly disoriented and confused. with midline on Right upper arm, intact and patent. still on NPO, no signs of distress with O2 inhalation at 3 lpm via nasal cannula. Observed accordingly
[2022-09-20] MEDS: FLUTICASONE/VILANTEROL 1 EACH BLST.W.DEV INH SCH ×2 (08:59→09:00)
[2022-09-20] MEDS: CLOTRIMAZOLE 1% CREAM 30 GM TUBE TOP SCH ×2 (08:59→17:16)
[2022-09-20] MEDS: PANTOPRAZOLE SODIUM 40 MG VIAL IV SCH (08:59)
[2022-09-20] MEDS: TIMOLOL MALEATE 0.5% OPHT DROP 5 ML BOTTLE EACHEYE SCH ×2 (09:00→17:16)
[2022-09-20] MEDS: REMEDY ESSENTIAL ZINC PASTE 113 GM TOP SCH ×2 (09:01→22:37)
[2022-09-20] MEDS: FUROSEMIDE 20 MG TABLET PO SCH (10:21)
[2022-09-20] MEDS ORDERED: LORAZEPAM 2 MG/1 ML VIAL IV ONE (10:30)
--- NOTE | 2022-09-20 10:30 | NUR ---
Oral care done, suctioned secretions as needed. Kept monitored and observed wrist restraint
--- NOTE | 2022-09-20 11:00 | NUR ---
Patient went to [place] for MRI, picked up by ambulance. Ativan 0.5mg IV given as ordered, pt. stable.
--- NOTE | 2022-09-20 13:15 | NUR ---
Patient back from [facility], brought by ambulance. Assisted pt. back to bed, changed diaper and applied air mattress. Provided comfort and safety measures. Hooked to O2 inhalation at 3 lpm via nasal cannula, SR on tele monitor at 93 bpm.
--- NOTE | 2022-09-20 16:31 | NUR ---
PATIENT MORE ALERT AND RESPONSIVE, ABLE TO FOLLOW SIMPLE INSTRUCTION LIKE "OPEN YOUR MOUTH" REQUIRES OCCASIONAL ORAL SUCTIONING. MOUTH CARE GIVEN. CONTINUE WITH PHYSICAL THERAPY ORDERED. SEE PT NOTES
[2022-09-20 16:51] VITALS: BP 168/93
--- NOTE | 2022-09-20 18:25 | NUR ---
Pt's BP is elevated 173/86 repeated 164/[address] Camejo. Pt. asymptomatic, observed accordingly. Waiting for MD's reply.
--- NOTE | 2022-09-20 19:00 | NUR ---
Dr. Camejo, texted back will reconcile home meds. Report given to manufacturing shift supervisor nurse.
[2022-09-20] MEDS ORDERED: GADOTERATE MEGLUMINE 10 MMOL/20 ML VIAL IV ONE (19:04)
[2022-09-20] MEDS ORDERED: hydrALAZINE HCL 25 MG TABLET PO PRN (19:30)
--- NOTE | 2022-09-20 19:35 | NUR ---
Received patient in bed, awake but with confusion, no sob no chest pain,, tele sinus rhythm with 1st degree AV block, with episode of yelling and screaming, has episode of slight productive cough, able to spit sputum in small amount, kept clean and dry, cont to monitor.
[2022-09-20] MEDS ORDERED: hydrALAZINE HCL 20 MG/1 ML VIAL IV PRN (19:45)
[2022-09-20 20:00] VITALS: BP 136/95
[2022-09-20] MEDS: LATANOPROST OPHT DROP 2.5 ML BOTTLE EACHEYE SCH (22:36)
[2022-09-21] VITALS: BP 194/93
[2022-09-21] MEDS: MORPHINE SULFATE 2 MG/1 ML DISP.SYRIN IV PRN (02:42)
--- NOTE | 2022-09-21 03:00 | NUR ---
Patient asleep, but arousable, patient yelling and screaming, complain of gen body pain, given Morphine 2mg iv, with effective results, tx continue on multiple rashes on right and left buttock, right and leg lower extremities, right and left groin, frequent visual check, kept comfortable, cont to monitor.
[2022-09-21 04:00] VITALS: BP 154/69
[2022-09-21 06:56] LABS: MEAN CORPUSCULAR VOLUME 93.7 fL (73.0-96.2); PLATELET COUNT (AUTO) 54 K/uL (152-348)
[2022-09-21 07:29] LABS: CARBON DIOXIDE 34 mmol/L (21-32); CHLORIDE 103 mmol/L (98-107); CREATININE 0.9 mg/dL (0.6-1.3); GLUCOSE 99 mg/dL (74-106); POTASSIUM 3.9 mmol/L (3.5-5.1); UREA NITROGEN, BLOOD 14 mg/dL (7-18)
--- NOTE | 2022-09-21 07:54 | NUR ---
PATIENT CONTINUE TO HAVE ON AND OFF CONFUSION, TRYING TO PULL OUT TUBINGS DURING THE NIGHT SEEN BY HOSPITALIST FOR FOLLOW-UP WITH ORDERS. SEE NOTES
[2022-09-21] MEDS ORDERED: TEMAZEPAM 15 MG CAPSULE PO PRN (08:00)
--- NOTE | 2022-09-21 08:09 | NUR ---
Seen by Dr. Camejo, referral for Psych fax to [facility] under Dr. Aguilar.
[2022-09-21] MEDS: TIMOLOL MALEATE 0.5% OPHT DROP 5 ML BOTTLE EACHEYE SCH ×2 (08:23→17:55)
[2022-09-21] MEDS: PANTOPRAZOLE SODIUM 40 MG VIAL IV SCH (08:23)
[2022-09-21] MEDS: FUROSEMIDE 20 MG TABLET PO SCH (08:23)
[2022-09-21] MEDS: BENAZEPRIL HCL 20 MG TABLET PO SCH (08:25)
[2022-09-21] MEDS: METOPROLOL SUCCINATE XL 50 MG TAB.SR.24H PO SCH (08:25)
--- NOTE | 2022-09-21 08:30 | NUR ---
Received pt. in bed awake, alert and oriented. With midline on right upper arm, patent and intact. O2 inhalation at 3lpm via nasal cannula. Seen by speech therapy, started pureed diet. Oral medication started and tolerated well. Bed bath, changed linen and dressing done. Needs attended Addendum: 09/21/22 at 1414 by JOANIE ESTRADA RN Patient oriented to name.
[2022-09-21] MEDS ORDERED: TRAMADOL HCL 50 MG TABLET PO PRN (08:45)
[2022-09-21] MEDS: REMEDY ESSENTIAL ZINC PASTE 113 GM TOP SCH ×2 (08:49→20:10)
[2022-09-21] MEDS: CLOTRIMAZOLE 1% CREAM 30 GM TUBE TOP SCH ×2 (08:49→17:55)
[2022-09-21] MEDS: FLUTICASONE/VILANTEROL 1 EACH BLST.W.DEV INH SCH (08:49)
[2022-09-21 12:00] VITALS: BP 128/69
--- NOTE | 2022-09-21 14:20 | NUR ---
Patient continue tolerating clear liquid diet, with honey thick liquids. On strict aspiration precaution. Pt. more alert and awake, follows simple commands. Denies any discomfort, no signs of distress. Observed according
[2022-09-21 15:12] LABS: EOSINOPHILS % (MANUAL) 2 % (0-8); LYMPHOCYTES % (MANUAL) 17 % (20-40); MONOCYTES % (MANUAL) 10 % (2-10); NEUTROPHILS % (MANUAL) 71 % (42-75)
[2022-09-21 16:00] VITALS: BP 132/75
[2022-09-21] MEDS ORDERED: BLOOD SUGAR DIAGNOSTIC 1 EACH STRIP VI SCH (16:30)
--- NOTE | 2022-09-21 19:30 | NUR ---
Received patient lying in bed. AaoX3. In no acute distress. Denies any pain or SOB. Midline on right upper arm intact and patent. Dressing on left wrist area intact, clean and dry. NSR on tele with 1st degree AVB with HR of 61/min. Calm and pleasant. Needs assessed and attended to. Safety measure initiated and call light within reached.
[2022-09-21 20:00] VITALS: BP 138/82
[2022-09-21] MEDS: ATORVASTATIN 10 MG TABLET PO SCH (20:09)
[2022-09-21] MEDS: LATANOPROST OPHT DROP 2.5 ML BOTTLE EACHEYE SCH (20:09)
[2022-09-21] MEDS: TERAZOSIN 1 MG CAPSULE PO SCH (20:09)
[2022-09-22 04:00] VITALS: BP 121/49
--- NOTE | 2022-09-22 06:03 | NUR ---
Slept well during the night. In no acute distress. Sinus harjinder with 1st degree AVB on tele with HR of 59/min. Needs attended to and met. Safety measure maintain and call light within reached.
[2022-09-22 06:15] LABS: HEMATOCRIT 42.9 % (36.7-47.1); MEAN CORPUSCULAR HEMOGLOBIN 30.9 uug (23.8-33.4); MEAN CORPUSCULAR VOLUME 93.9 fL (73.0-96.2)
[2022-09-22 06:23] LABS: POTASSIUM 3.8 mmol/L (3.5-5.1)
--- NOTE | 2022-09-22 06:25 | NUR ---
Critical lab value Plt-49. Will informed day shift RN to follow up with .
[2022-09-22 06:26] LABS: PLATELET COUNT (AUTO) 49 K/uL (152-348)
[2022-09-22 06:57] LABS: BAND % (MANUAL) 1 % (0-10); EOSINOPHILS % (MANUAL) 5 % (0-8); LYMPHOCYTES % (MANUAL) 25 % (20-40); MONOCYTES % (MANUAL) 8 % (2-10); NEUTROPHILS % (MANUAL) 61 % (42-75)
--- NOTE | 2022-09-22 07:48 | NUR ---
Awake, alert, oriented x 3. O2 at 2L/NC. Denies pain. Bed alarm on
[2022-09-22] MEDS: TIMOLOL MALEATE 0.5% OPHT DROP 5 ML BOTTLE EACHEYE SCH ×2 (09:43→17:26)
[2022-09-22] MEDS: FLUTICASONE/VILANTEROL 1 EACH BLST.W.DEV INH SCH (09:43)
[2022-09-22] MEDS: FUROSEMIDE 20 MG TABLET PO SCH (09:44)
[2022-09-22] MEDS: BENAZEPRIL HCL 20 MG TABLET PO SCH (09:44)
[2022-09-22] MEDS: METOPROLOL SUCCINATE XL 50 MG TAB.SR.24H PO SCH (09:44)
[2022-09-22] MEDS: PANTOPRAZOLE SODIUM 40 MG VIAL IV SCH (09:44)
[2022-09-22] MEDS: CLOTRIMAZOLE 1% CREAM 30 GM TUBE TOP SCH ×2 (09:45→17:27)
[2022-09-22] MEDS: REMEDY ESSENTIAL ZINC PASTE 113 GM TOP SCH ×2 (09:45→20:26)
--- NOTE | 2022-09-22 10:30 | NUR ---
Assisted out of bed by PT, participated well
[2022-09-22 11:41] VITALS: BP 114/56
--- NOTE | 2022-09-22 14:30 | NUR ---
Incontinence care done. Repositioned comfortably
[2022-09-22 15:47] VITALS: BP 120/60
--- NOTE | 2022-09-22 17:59 | NUR ---
Eating well, with aspiration precaution. Incontinence care and skin care done. Repositioned in bed comfortably.
[2022-09-22 20:00] VITALS: BP 127/65
[2022-09-22] MEDS: ATORVASTATIN 10 MG TABLET PO SCH (20:23)
[2022-09-22] MEDS: TERAZOSIN 1 MG CAPSULE PO SCH (20:25)
[2022-09-22] MEDS: LATANOPROST OPHT DROP 2.5 ML BOTTLE EACHEYE SCH (20:25)
--- NOTE | 2022-09-22 20:38 | NUR ---
Received patient lying in bed. AAOX3-4. In no acute distress. Denies any pain or SOB. On O2 at 3LPM via NC in place. Midline on right upper arm intact and patent. NSR on tele with 1st degree AVB with HR of 81/min. Needs assessed and attended to. Safety measure initiated and call light within reached.
--- NOTE | 2022-09-22 22:30 | NUR ---
assumed care from Nurse Carmichael; agree with previous assessment; will continue plan of care.
[2022-09-23] VITALS: BP 142/62
[2022-09-23 04:00] VITALS: BP 137/60
[2022-09-23 06:47] LABS: HEMATOCRIT 40.4 % (36.7-47.1); MEAN CORPUSCULAR HEMOGLOBIN 31.5 uug (23.8-33.4); MEAN CORPUSCULAR VOLUME 93.7 fL (73.0-96.2)
[2022-09-23 07:00] LABS: CREATININE 0.9 mg/dL (0.6-1.3); POTASSIUM 3.8 mmol/L (3.5-5.1)
[2022-09-23 08:36] LABS: PLATELET COUNT (AUTO) 45 K/uL (152-348)
[2022-09-23] MEDS: TIMOLOL MALEATE 0.5% OPHT DROP 5 ML BOTTLE EACHEYE SCH (08:36)
[2022-09-23] MEDS: FLUTICASONE/VILANTEROL 1 EACH BLST.W.DEV INH SCH (08:36)
[2022-09-23] MEDS: PANTOPRAZOLE SODIUM 40 MG VIAL IV SCH (08:36)
[2022-09-23] MEDS: FUROSEMIDE 20 MG TABLET PO SCH (08:37)
[2022-09-23] MEDS: REMEDY ESSENTIAL ZINC PASTE 113 GM TOP SCH (08:37)
[2022-09-23] MEDS: CLOTRIMAZOLE 1% CREAM 30 GM TUBE TOP SCH (08:40)
[2022-09-23] MEDS: BENAZEPRIL HCL 20 MG TABLET PO SCH (08:43)
[2022-09-23] MEDS: METOPROLOL SUCCINATE XL 50 MG TAB.SR.24H PO SCH (08:43)
--- NOTE | 2022-09-23 09:55 | NUR ---
Critical lab value reported by Doc at 0950 for Platelet count of 45 L. Reported to STRATEGIES ANALYST (Luis Camejo) and no new order received.
[2022-09-23 11:52] VITALS: BP 113/65
--- NOTE | 2022-09-23 14:48 | NUR ---
Pt. discharged to [facility]. Noted to be stable upon the discharge. No acute distress noted. Personal belonging and personal medications returned to the patient. All necessary document signed. Body check sone and picture included in pt. chart. Called at [facility] and gave the report to receiving nurse.
[2022-09-23 17:46] LABS: BAND % (MANUAL) 0 % (0-10); EOSINOPHILS % (MANUAL) 3 % (0-8); LYMPHOCYTES % (MANUAL) 27 % (20-40); MONOCYTES % (MANUAL) 13 % (2-10); NEUTROPHILS % (MANUAL) 56 % (42-75)
[2022-09-23 17:47] LABS: BASOPHILS % (MANUAL) 1 % (0-2)
== END 2022-09-23 14:00 | DRG 291 ==
LOC: ER 11:01 → TELE3 17:34 → MEDSURG3 09-23 09:31
PROVIDERS: ADMIT Internal Medicine; ATTEND Nurse Practitioner Acute Care
PROC: 05H533Z Insertion of Infusion Device into Right Subclavian Vein, Percutaneous Approach (ICD-10-PCS; principal; 2022-09-19)
PROC: B546ZZA Ultrasonography of Right Subclavian Vein, Guidance (ICD-10-PCS; 2022-09-19)
DX: I11.0 Hypertensive heart disease with heart failure (principal); E43 Unspecified severe protein-calorie malnutrition; J96.01 Acute respiratory failure with hypoxia; G92.8 Other toxic encephalopathy; I50.33 Acute on chronic diastolic (congestive) heart failure; N17.0 Acute kidney failure with tubular necrosis; J96.21 Acute and chronic respiratory failure with hypoxia; J96.22 Acute and chronic respiratory failure with hypercapnia; D68.69 Other thrombophilia; L03.116 Cellulitis of left lower limb; L03.115 Cellulitis of right lower limb; Z68.41 Body mass index [BMI] 40.0-44.9, adult; I48.20 Chronic atrial fibrillation, unspecified; J44.1 Chronic obstructive pulmonary disease with (acute) exacerbation; Z74.09 Other reduced mobility; D69.6 Thrombocytopenia, unspecified; E03.8 Other specified hypothyroidism; E78.5 Hyperlipidemia, unspecified; E87.5 Hyperkalemia; E88.09 Other disorders of plasma-protein metabolism, not elsewhere classified; F17.210 Nicotine dependence, cigarettes, uncomplicated; Z79.01 Long term (current) use of anticoagulants; I48.0 Paroxysmal atrial fibrillation; I87.2 Venous insufficiency (chronic) (peripheral); F01.50 Vascular dementia, unspecified severity, without behavioral disturbance, psychotic disturbance, mood disturbance, and anxiety; R53.1 Weakness; F32.A Depression, unspecified; G47.33 Obstructive sleep apnea (adult) (pediatric); H40.9 Unspecified glaucoma; I35.0 Nonrheumatic aortic (valve) stenosis; I25.10 Atherosclerotic heart disease of native coronary artery without angina pectoris; N40.0 Benign prostatic hyperplasia without lower urinary tract symptoms; I99.8 Other disorder of circulatory system
CPT/HCPCS: 36415; 36600; 70030-TC; 70450; 70553; 71045; 83605; 83735; 84100; 84443; 84484; 85025; 93005; 94640; A4663; A6209; A9575; C9113; G0378; J0360; J0692; J2060; J2270; J3590; J7040